=== PATIENT | male | born 1945 | race Caucasian/White ===

== ENCOUNTER 2018-03-23 11:47 | Inpatient (IN) ==
[2018-03-23 16:08] LABS: BASO# 0.04 X1000 (0.0-0.2); BASO% 0.5 % (0.0-0.8); EOS# 0.11 X1000 (0.0-0.7); EOS% 1.4 % (0.0-10.0); HEMATOCRIT 42.9 % (42.0-52.0); HEMOGLOBIN 14.2 g/dL (14.0-18.0); IMM GRAN# 0.02 X1000 (0.0-0.04); IMM GRAN% 0.3 % (0.0-0.5); LYMPH# 1.63 X1000 (1.2-3.4); LYMPH% 21.3 % (20.5-51.1); MCH 30.3 PG (27-31); MCHC 33.1 g/dL (33-37); MCV 91.5 FL (81-99); MONO# 0.81 X1000 (0.11-0.59); MONO% 10.6 % (1.7-9.3); MPV 11.6 FL (7.4-10.4); NEUT# 5.06 X1000 (1.4-6.5); NEUT% 65.9 % (42.2-75.2); PLT 215 X1000 (130-400); RBC 4.69 XMIL (4.7-6.1); RDW 12.4 % (11.5-14.5); WBC 7.67 X1000 (4.8-10.8)
--- NOTE | 2018-03-23 16:15 | Diag Imaging Result Doc PS360 ---
CHEST-PORTABLE - 03/23/2018 INDICATION: pre op COMPARISON: None FINDINGS: The lungs are normally expanded and clear. Heart size and mediastinal contours are normal. No pneumothorax or pleural effusion. IMPRESSION: Negative exam. Electronically signed by Jonah Salmeron 03/23/2018 4:13 PM
[2018-03-23 16:23] LABS: INR 0.93; PROTIME 13.2 Seconds (11.0-16.0)
[2018-03-23 16:44] LABS: ALB/GLOB RATIO 1.1; ALBUMIN 3.5 g/dL (3.5-5.0); CALCIUM 8.3 mg/dL (8.8-10.2); CREATININE 1.2 mg/dL (0.7-1.2); MAGNESIUM 2.1 mg/dL (1.5-2.7); POTASSIUM 3.7 mmol/L (3.5-5.1); TOTAL BILIRUBIN 0.37 mg/dL (0.20-1.00); TOTAL PROTEIN 6.8 g/dL (6.3-8.3)
[2018-03-23] MEDS: HUMULIN R SUBQ SCH ×2 (17:13→20:53)
[2018-03-23] MEDS: NS 1,000 ML IV SCH (17:43)
[2018-03-23 17:48] LABS: URINE SOURCE CLEAN CATCH
[2018-03-23] MEDS ORDERED: TYLENOL PO PRN (17:50)
[2018-03-23] MEDS ORDERED: NORCO-5 PO PRN (17:50)
[2018-03-23 18:01] LABS: BILIRUBIN URINE NEGATIVE (NEGATIVE); BLOOD URINE NEGATIVE (NEGATIVE); COLOR YELLOW; GLUCOSE URINE >1000 mg/dL (NEGATIVE); KETONE URINE NEGATIVE (NEGATIVE); LEUKOCYTES URINE NEGATIVE (NEGATIVE); NITRITE URINE NEGATIVE (NEGATIVE); PROTEIN URINE NEGATIVE (NEGATIVE); SP GRAVITY URINE 1.019; TURBIDITY URINE CLEAR (CLEAR); UROBILINOGEN URINE NORMAL (NORMAL)
[2018-03-23 18:03] LABS: UR EPITHELIAL CELLS <10 /HPF (<10); URINE BACTERIA NEGATIVE /HPF; URINE RBC <10 /HPF (<10); URINE WBC <10 /HPF (<10)
[2018-03-23] MEDS: ROCEPHIN 2 GM in NS 50 ML IV SCH (18:43)
[2018-03-23] MEDS: MAG-OX PO SCH (20:52)
[2018-03-23] MEDS: NEURONTIN PO SCH (20:52)
[2018-03-23] MEDS: FLOMAX PO SCH (20:53)
[2018-03-23] MEDS: REQUIP PO SCH (20:53)
[2018-03-23] MEDS: FLAGYL PO SCH (20:53)
[2018-03-23] MEDS ORDERED: LEVEMIR SUBQ SCH (21:00)
--- NOTE | 2018-03-23 23:48 | INFECTIOUS DISEASE CONSULT REP ---
DATE: 03/23/2018 CONCLUSION: The patient has osteomyelitis of the right foot. A culture taken from the foot grew Serratia marcescens and an anaerobic organism as well. RECOMMENDATIONS: I have started the patient on Rocephin and Flagyl. DISCUSSION: The patient for the past 4 months has had pain and some swelling and erythema of the right foot. The foot also started draining. He was seen by Dr. Mace who ordered a MRI of the right foot and he said it showed that the patient had osteomyelitis also. Dr. Mace obtained a culture from the patient's foot and it grew Serratia and an anaerobic organism. PAST MEDICAL HISTORY/REVIEW OF SYSTEMS: Eyes and ears: The patient has decreased hearing but his vision is okay. Neck: No stiffness. Respiratory: No cough or shortness of breath. Cardiac: No chest pains or palpitations. GI: The patient states intermittently he has constipation. He is not having vomiting. Genitourinary: No dysuria or flank pain. Bones, joints, muscles: See present illness. Endocrine: Patient is diabetic but he does not have thyroid disease. Neurologic: The patient is not having seizures. He has not had any motor function loss. PREVIOUS HOSPITALIZATIONS AND OPERATIONS: Patient said that he was admitted for having gallstones and he did not have his gallbladder taken out, but somehow the gallstones were removed. MEDICAL DISEASES: Positive for obesity, diabetes mellitus and neuropathy manifested by decreased sensation in his feet. INFECTIOUS DISEASE HISTORY: Negative for pneumonia and UTI. FAMILY HISTORY: Positive for diabetes mellitus, hypertension and cancer. [place]IAL HISTORY[place] He [place] a . He has cat as a pet. He does not smoke cigarettes, drink alcoholic beverages or abuse drugs. The patient is retired. ALLERGIES: His chart lists no known drug allergies. HOME MEDICATIONS: Include Trulicity, Nexium, Lasix, gabapentin, glyburide/metformin, Isordil, mononitrate, Pravachol, Requip, and Flomax. PHYSICAL EXAMINATION: There were no vital signs on the chart except for the patient's weight which was 245 pounds.General: This is an obese elderly male who is in no acute distress. Head/eyes/ears/nose/throat: He can hear my spoken words and see near objects. There is no drainage coming from the nose or ears. There was no white coating on his tongue. Neck: No stiffness. Lungs: Clear to auscultation. Cardiovascular: Regular heart rate. Abdomen: Soft and nontender. Extremities: The patient's right foot was erythematous and swollen and on the latter aspect there was purulent drainage. Neurologic: The patient is awake. He can move his extremities. There is no tremor. His sensation is intact to touch. The patient's memory regarding his medical history was intact. Integument: No rash noted. Thank you for the consult. cc: MD Amber Castellano MD
--- NOTE | 2018-03-24 00:10 | HISTORY AND PHYSICAL ---
PRIMARY CARE PROVIDER: Dr. Jamar Devi. The patient also sees Dr. Mace. CHIEF COMPLAINT: Right foot pain. HISTORY OF PRESENT ILLNESS: Mr. Carpenter is a 72-year-old male with a past medical history of uncontrolled diabetes mellitus, hypertension, sleep apnea and hyperlipidemia who presents as a direct admission from Dr. Mace's office today with concern for possible osteomyelitis of the right foot 5th digit. He has been experiencing redness and drainage from this foot since around December. This has progressively gotten worse and in clinic today Dr. Mace recommended for this patient to have surgery and requested for him to be admitted today. He denies any chest pain, shortness of breath, abdominal pain, nausea, vomiting, or diarrhea. He denies any fever. He does have significant pain and erythema to his right foot and unable to bear weight on this foot. He is a long-time diabetic. A1c is 11.0 and he states he has been on p.o. antibiotics for about the past month without significant improvement. He will be admitted for further evaluation and treatment and consultation per Dr. Mace and Infectious Disease Dr. Torres. PAST MEDICAL HISTORY: 1. Uncontrolled diabetes mellitus. 2. Hypertension. 3. Sleep apnea. 4. Hyperlipidemia. PAST SURGICAL HISTORY: No surgeries. SOCIAL HISTORY: The patient denies any tobacco, alcohol or illicit drug use. He lives alone. His is recently . He does have home health with [facility] and he is using a knee walker for mobility right now. REVIEW OF SYSTEMS: Fourteen point review of systems completely negative except for those mentioned in the HPI. His current symptoms include pain in the right foot. HOME MEDICATIONS: 1. Flomax 0.4 mg p.o. at bedtime. 2. Trulicity 0.75 mg subcu as directed. 3. Isosorbide mononitrate 30 mg p.o. daily. 4. Requip 0.5 mg p.o. at bedtime. 5. Pravastatin 40 mg p.o. daily. 6. Magnesium 250 mg p.o. at bedtime. 7. Insulin Tresiba 65 units subcu at bedtime. 8. Glyburide/metformin 1 each p.o. daily. 9. Gabapentin 300 mg p.o. b.i.d. 10. Lasix 20 mg p.o. daily. 11. Nexium 40 mg p.o. daily. ALLERGIES: No known drug allergies. PHYSICAL EXAMINATION: VITAL SIGNS: Not currently charted yet. GENERAL: This is a 72-year-old male. He is in no acute distress sitting in bed, answering questions appropriately. His son is at the bedside. NEURO: He is alert and oriented without focal deficits. Strength is equal bilaterally. He does have diminished sensation of bilateral lower extremities. HEENT: Head is atraumatic, normocephalic. Pupils are equal, round, reactive to light. Oral mucosa is moist. NECK: Trachea is midline. There is no JVD. CHEST: Lungs sounds are clear bilaterally. Respirations are unlabored. CARDIOVASCULAR: Rate and rhythm are regular. S1-S2 noted. ABDOMEN: Soft and nontender. Bowel sounds are positive. EXTREMITIES: There is erythema and yellowish drainage to the right foot around the left digit extending up the calf. He has 2+ pedal pulses bilaterally. LABS: WBC 7.6, hemoglobin 14.2, hematocrit 42.9, platelets 215,000. Sodium 135 , potassium 3.7, glucose 418. Hemoglobin A1c 11.0, BUN 27, creatinine 1.2, calcium 8.3, TSH 1.51. Liver enzymes normal. IMAGING: Chest x-ray, negative exam. ASSESSMENT AND PLAN: 1. Suspected osteomyelitis. Dr. Mace plans to do surgery tomorrow. We will keep NPO at midnight and hold anticoagulants until after surgery. We also consulted with Dr. Torres, infectious disease to assist in antibiotic guidance. We will also provide pain control and IV fluid hydration. 2. Hypertension. We will continue his home medications. 3. Uncontrolled diabetes mellitus. Will pattern blood glucose and sliding scale insulin. His A1c is 11.0. 4. Sleep apnea aware. 5. Hyperlipidemia. We will obtain lipid level and continue home medications. 6. Deep venous thrombosis prophylaxis. We will hold for now until after surgery. 7. Gastrointestinal prophylaxis Protonix. Dictated by RAMON Garcia for Amber Kendrick MD cc: KADI Yi
--- NOTE | 2018-03-24 02:16 | CONSULTATION ---
DATE OF CONSULTATION: 03/23/2018 HISTORY OF PRESENT ILLNESS: He is a patient that has been familiar to me for quite some time. He was seen in my office this morning for a wound that has been open and been infected that we have been treating as an outpatient, it had been holding its own for a while and then it started to look like he may be having some underlying osteomyelitis so we ordered an MRI at [facility], and was suspicious for osteomyelitis. I saw him last Monday, the plan was to get him to Dr. Torres as an outpatient and get an ID consult when the culture was final, and possibly treat this as an outpatient, but when he came in my office on Monday the foot was a lot more red and swollen than it had been, and the decision was made to put him in-house and do a debridement, open the foot up and debride the infected tissue, and he is amenable to that. PHYSICAL EXAMINATION: He has 2 wounds, 1 on the plantar aspect of the 5th metatarsal head and 1 on the dorsal aspect of the 5th metatarsal with surrounding redness, and swelling, pain and some purulent discharge. He had a culture that was taken outpatient that grew an anaerobe, so we are going to add oral Flagyl. ASSESSMENT AND PLAN: Diabetic foot infection with drainage and possible probable underlying osteomyelitis. The plan is to take him to the operating room tomorrow and debride all the infected and nonviable tissue and bone. He understands that this may be up to and including an amputation of part of his 5th ray and losing the 5th toe and he is fine with that. So we will take him to the operating room tomorrow morning and do the procedure and follow him until discharge. We may need a secondary operation to close the wound depending on how everything goes tomorrow. cc: KADI Yi MD
[2018-03-24] MEDS: FLAGYL PO SCH ×4 (03:31→21:04)
[2018-03-24] MEDS ORDERED: INSULIN PEN NEEDLES ONE (05:45)
[2018-03-24] MEDS: PRILOSEC PO SCH (06:02)
[2018-03-24] MEDS: HUMULIN R SUBQ SCH ×4 (06:02→21:05)
[2018-03-24] MEDS: NS 1,000 ML IV SCH ×2 (06:03→21:05)
[2018-03-24] MEDS ORDERED: NEXIUM PO SCH (07:00)
[2018-03-24 07:11] LABS: BASO# 0.04 X1000 (0.0-0.2); BASO% 0.5 % (0.0-0.8); EOS# 0.16 X1000 (0.0-0.7); HEMATOCRIT 45.7 % (42.0-52.0); IMM GRAN# 0.02 X1000 (0.0-0.04); IMM GRAN% 0.2 % (0.0-0.5); LYMPH# 1.84 X1000 (1.2-3.4); LYMPH% 22.5 % (20.5-51.1); MCH 30.2 PG (27-31); MCHC 32.8 g/dL (33-37); MONO# 0.75 X1000 (0.11-0.59); MONO% 9.2 % (1.7-9.3); MPV 11.7 FL (7.4-10.4); NEUT# 5.38 X1000 (1.4-6.5); NEUT% 65.6 % (42.2-75.2); PLT 233 X1000 (130-400); RBC 4.97 XMIL (4.7-6.1); RDW 12.6 % (11.5-14.5); WBC 8.19 X1000 (4.8-10.8)
[2018-03-24 07:38] LABS: AGAP 15; BUN 25 mg/dL (8-22); CALCIUM 8.9 mg/dL (8.8-10.2); CHLORIDE 99 mmol/L (98-107); CHOLESTEROL 151 mg/dL (0-200); COSMO 292; CREATININE 1.1 mg/dL (0.7-1.2); ESTIMATED GFR > 60; GLUCOSE 278 mg/dL (70-104); HDL 47 mg/dL (35-55); LDL 81 mg/dL; POTASSIUM 4.1 mmol/L (3.5-5.1); SODIUM 139 mmol/L (136-145); TCO2 25 mmol/L (25-35); TRIGLYCERIDES 115 mg/dL (39-160); VLDL 23 mg/dL
[2018-03-24] MEDS ORDERED: DIPRIVAN 1% ONE (08:43)
[2018-03-24] MEDS ORDERED: QUELICIN (DOSE) ONE (08:45)
[2018-03-24] MEDS ORDERED: XYLOCAINE-MPF 2% ONE (08:45)
[2018-03-24] MEDS ORDERED: NEOSPORIN G.U. IRRIGANT ONE ×2 (10:44→10:56)
[2018-03-24] MEDS ORDERED: FENTANYL ONE (11:02)
[2018-03-24] MEDS ORDERED: ZOFRAN ONE (11:02)
[2018-03-24] MEDS: NORCO-10 PO PRN ×2 (12:24→16:47)
[2018-03-24] MEDS: LASIX PO SCH (12:24)
[2018-03-24] MEDS: NEURONTIN PO SCH ×2 (12:24→21:04)
[2018-03-24] MEDS: LEVEMIR SUBQ SCH ×2 (12:25→21:05)
--- NOTE | 2018-03-24 13:26 | PROGRESS NOTE ---
DATE: 03/24/2018 SUBJECTIVE: The patient is resting comfortably. He is scheduled to have surgery on his foot today. OBJECTIVE: Vital Signs: Temperature 98.6 degrees, blood pressure 125/68, heart rate 75, respirations 18, O2 saturation 96% on room air. General: This is a morbidly obese elderly male lying in bed in no acute distress. Heart: S1, S2 normal. Regular rate and rhythm. Lungs: Equal air entry bilaterally. No crackles, no rales. Abdomen: Positive bowel sounds. Soft, nontender, nondistended. Extremities: The foot is wrapped in a clean dry dressing. LABS: Sodium 139, potassium 4.1, chloride 99, CO2 25, BUN 25, creatinine 1.1, glucose 278. ASSESSMENT AND PLAN: 1. Right foot osteomyelitis. The patient is going to undergo debridement today. Will continue with antibiotic therapy as directed by Dr. Torres. 2. Uncontrolled insulin-dependent diabetes mellitus. Will adjust the patient's long-acting insulin. Continue with sliding scale insulin. 3. Gastroesophageal reflux disease. Continue on Protonix. 4. Benign prostatic hypertrophy. Continue on Flomax. 5. Hypertension controlled. 6. Deep vein thrombosis prophylaxis. Will start the patient on Lovenox. cc: Amber Kendrick MD MTDD
--- NOTE | 2018-03-24 15:48 | OPERATIVE NOTE ---
PROCEDURE DATE: PREOP DIAGNOSIS: Nonhealing diabetic foot ulcer with underlying osteomyelitis 5th metatarsal head right foot. POSTOP DIAGNOSIS: Nonhealing diabetic foot ulcer with underlying osteomyelitis 5th metatarsal head right foot. PROCEDURE: Is incision and drainage of right foot with removal of infected tissue and bone 5th metatarsal right foot. SURGEON: Dr. Mace. ANESTHESIA: Was general. HEMOSTASIS: Was thigh tourniquet 350 mmHg. DESCRIPTION OF PROCEDURE: Patient brought to operating room placed on supine position. General anesthesia was then induced. Patient was then prepped and draped in usual aseptic manner. Procedure was begun by examining the right foot with elevation and inflating the tourniquet to 350 mmHg. An incision was made near the dorsal lateral aspect of the 5th metatarsal longitudinally. This was deepened down to the deep layers and we encountered some purulent drainage which was cultured deep cultures in the foot. We then identified where the infection was coming from from the bone in the 5th metatarsal head. There was obviously osteomyelitic bone which was confirmed with MRI. This bone was resected with a sagittal saw and sent as a specimen. We then took another little sliver proximally of what appeared to be normal bone and sent that as separate specimen with the expectation that will show no infection. The remainder of the procedure involved removing any nonviable tissue. There was very little that, most of the tissue looked good once we got the infected bone out of there. Soft tissue was debrided with scissors and a pickup until good healthy tissue was noted everywhere. The tourniquet was released. Wound was irrigated 3 L normal saline with solution. The wound was then packed with iodoform gauze and closed with 2-0 nylon partially. He left the operating room vital signs stable, CFT intact and will be followed [*] cc: Nolan Mace DPM
[2018-03-24] MEDS: ROCEPHIN 2 GM in NS 50 ML IV SCH (18:16)
[2018-03-24] MEDS: DILAUDID IV PRN (18:28)
[2018-03-24] MEDS: MAG-OX PO SCH (21:04)
[2018-03-24] MEDS: REQUIP PO SCH (21:04)
[2018-03-24] MEDS: FLOMAX PO SCH (21:04)
[2018-03-25] MEDS: DILAUDID IV PRN (02:44)
[2018-03-25] MEDS: PRILOSEC PO SCH (06:00)
[2018-03-25] MEDS: FLAGYL PO SCH ×3 (06:01→20:09)
[2018-03-25] MEDS: HUMULIN R SUBQ SCH ×4 (06:01→20:10)
[2018-03-25 07:19] LABS: BASO# 0.02 X1000 (0.0-0.2); BASO% 0.3 % (0.0-0.8); EOS# 0.16 X1000 (0.0-0.7); EOS% 2.1 % (0.0-10.0); HEMATOCRIT 43.6 % (42.0-52.0); HEMOGLOBIN 14.1 g/dL (14.0-18.0); LYMPH# 1.69 X1000 (1.2-3.4); LYMPH% 21.7 % (20.5-51.1); MCH 30.2 PG (27-31); MCHC 32.3 g/dL (33-37); MCV 93.4 FL (81-99); MONO# 0.81 X1000 (0.11-0.59); MONO% 10.4 % (1.7-9.3); MPV 11.4 FL (7.4-10.4); NEUT% 65.5 % (42.2-75.2); PLT 210 X1000 (130-400); RBC 4.67 XMIL (4.7-6.1); RDW 12.6 % (11.5-14.5); WBC 7.78 X1000 (4.8-10.8)
[2018-03-25 07:40] LABS: MAGNESIUM 2.1 mg/dL (1.5-2.7); PHOSPHORUS 2.9 mg/dL (2.7-4.5)
[2018-03-25 08:01] LABS: AGAP 12; BUN 19 mg/dL (8-22); CALCIUM 8.6 mg/dL (8.8-10.2); CHLORIDE 103 mmol/L (98-107); COSMO 286; ESTIMATED GFR > 60; GLUCOSE 140 mg/dL (70-104); POTASSIUM 4.5 mmol/L (3.5-5.1); SODIUM 141 mmol/L (136-145); TCO2 26 mmol/L (25-35)
[2018-03-25] MEDS: LOVENOX SUBQ SCH (09:28)
[2018-03-25] MEDS: NEURONTIN PO SCH ×2 (09:28→20:09)
[2018-03-25] MEDS: LASIX PO SCH (09:28)
[2018-03-25] MEDS: LEVEMIR SUBQ SCH ×2 (09:29→20:09)
--- NOTE | 2018-03-25 13:15 | PROGRESS NOTE ---
DATE: 03/25/2018 SUBJECTIVE: He states he is feeling much better. He had a decent amount of pain last night, but that has since resolved and it is less painful now than it was before the surgery. OBJECTIVE: He is lying in bed. He is in no distress. The swelling that was noted in his leg preoperatively is gone. Dressing is dry and intact. Upon removal the drain is in place. Sutures are in place. The wounds are healing well. The packing was removed and the interior of the wound looks very good. There is no pus. No odor. No devitalized tissue. No infected or nonviable tissue noted at all. The swelling and the redness in the foot is remarkably better than it was preoperatively, so everything looks quite a bit better than it did before the surgery. We are awaiting the final culture results and histopathological results from the surgery. ASSESSMENT AND PLAN: Open wound with underlying osteomyelitis that was debrided yesterday. The infected tissue was removed which included the end of the 5th metatarsal and today everything looks much, much better. The wound was lightly repacked with Betadine gauze and a sterile dressing. He is going to continue nonweightbearing and continue the IV antibiotics. If everything looks this good tomorrow, we should be able to let him go home tomorrow and the Infectious Disease, Dr. Torres, will determine the proper antibiotics for him based on the intraoperative cultures, which are still pending. cc: Nolan Mace DPM
[2018-03-25] MEDS: ROCEPHIN 2 GM in NS 50 ML IV SCH (16:59)
[2018-03-25] MEDS: ZYVOX PO SCH (17:06)
--- NOTE | 2018-03-25 18:48 | PROGRESS NOTE ---
DATE: 03/25/2018 SUBJECTIVE: The patient is resting comfortably in bed. He has no complaints at this time. OBJECTIVE: Vital Signs: Temperature 98.5 degrees, blood pressure 132/76, heart rate 81, respirations 18, O2 saturation 95% on room air. General: This is a chronically ill-appearing elderly male lying in bed in no acute distress. Heart: S1, S2 normal. Regular rate and rhythm. Lungs: Clear to auscultation bilaterally. Abdomen: Positive bowel sounds, soft, obese. Extremities: The right foot is wrapped in a clean dry dressing. Neuro: The patient is alert and oriented x3. LABS: White blood cell count 7.7, hemoglobin 14, hematocrit 43, platelets 210, 000, sodium 141, potassium 4.5, chloride 103, CO2 26, BUN 19, creatinine 1, glucose 140, calcium 8.6. ASSESSMENT AND PLAN: 1. Right foot osteomyelitis status post debridement. The cultures are growing gram-positive cocci. Continue with antibiotic therapy as directed by Dr. Torres. 2. Insulin-dependent diabetes mellitus type 2. Improved, continue on the current insulin regimen. 3. Benign prostatic hypertrophy. Continue on Flomax. 4. Hypertension. Controlled. 5. Gastroesophageal reflux disease. Continue on Protonix. 6. Deep vein thrombosis prophylaxis. The patient is on Lovenox. cc: Amber Kendrick MD MTDMellisa
--- NOTE | 2018-03-25 19:53 | INFECTIOUS DISEASE PROGRESS NO ---
DATE: 03/25/2018 SUBJECTIVE: The patient is growing gram-positive cocci from his foot. I have added Zyvox pending the identification and susceptibility testing of the gram-positive cocci. The patient is on Rocephin because the patient had Serratia isolated from his foot and the patient is on metronidazole because Dr. Mace said an anaerobic organism was isolated from the patient's foot also. cc: Peter Torres MD
[2018-03-25] MEDS: MAG-OX PO SCH (20:09)
[2018-03-25] MEDS: REQUIP PO SCH (20:09)
[2018-03-25] MEDS: COLACE PO SCH (20:09)
[2018-03-25] MEDS: FLOMAX PO SCH (20:10)
[2018-03-26] MEDS: FLAGYL PO SCH ×3 (04:01→14:28)
[2018-03-26] MEDS: ZYVOX PO SCH (06:14)
[2018-03-26] MEDS: PRILOSEC PO SCH (06:15)
[2018-03-26] MEDS: HUMULIN R SUBQ SCH ×3 (06:15→16:59)
[2018-03-26 07:15] LABS: BASO# 0.02 X1000 (0.0-0.2); BASO% 0.3 % (0.0-0.8); EOS# 0.22 X1000 (0.0-0.7); EOS% 3.2 % (0.0-10.0); HEMATOCRIT 43.9 % (42.0-52.0); HEMOGLOBIN 14.5 g/dL (14.0-18.0); LYMPH# 1.34 X1000 (1.2-3.4); LYMPH% 19.4 % (20.5-51.1); MCH 30.2 PG (27-31); MCV 91.5 FL (81-99); MONO# 0.69 X1000 (0.11-0.59); MPV 11.5 FL (7.4-10.4); NEUT# 4.65 X1000 (1.4-6.5); NEUT% 67.1 % (42.2-75.2); PLT 220 X1000 (130-400); RDW 12.4 % (11.5-14.5); WBC 6.92 X1000 (4.8-10.8)
--- NOTE | 2018-03-26 07:16 | EKG Report ---
Test Performed on : 03/24/2018 08:47:14 AM Test Reason : surgicial procd Blood Pressure : / mmHG Vent. Rate : 079 BPM Atrial Rate : 078 BPM P-R Int : 000 ms QRS Dur : 086 ms QT Int : 392 ms P-R-T Axes : 000 -45 015 degrees QTc Int : 449 ms Accelerated Junctional rhythm. vs. sinus rhythm Left anterior fascicular block Abnormal ECG When compared with ECG of 13-FEB-2014 12:19, Junctional rhythm. has replaced Sinus rhythm. Lots of baseline artifact, I suspect there are P waves hidden in the artifact. (V3) Confirmed by Paulina NEUMANN, Eduardo Kamara ([id number]) on 03/26/2018 8:43:13 AM
[2018-03-26 07:28] LABS: AGAP 14; BUN 15 mg/dL (8-22); CALCIUM 8.8 mg/dL (8.8-10.2); CHLORIDE 101 mmol/L (98-107); COSMO 277; CREATININE 0.9 mg/dL (0.7-1.2); ESTIMATED GFR > 60; GLUCOSE 99 mg/dL (70-104); POTASSIUM 3.9 mmol/L (3.5-5.1); SODIUM 138 mmol/L (136-145); TCO2 23 mmol/L (25-35)
[2018-03-26] MEDS: COLACE PO SCH (08:26)
[2018-03-26] MEDS: NEURONTIN PO SCH (08:26)
[2018-03-26] MEDS: LASIX PO SCH (08:26)
[2018-03-26] MEDS: LOVENOX SUBQ SCH (08:26)
[2018-03-26] MEDS: LEVEMIR SUBQ SCH (08:26)
[2018-03-26] MEDS ORDERED: INSULIN PEN NEEDLES ONE (08:36)
--- NOTE | 2018-03-26 12:08 | PROGRESS NOTE ---
DATE: 03/26/2018 SUBJECTIVE: The patient is resting comfortably in bed. He has no complaints. He states that his pain is under control. OBJECTIVE: Vital Signs: Temperature 97 degrees, blood pressure 132/79, heart rate 78, respirations 19, O2 saturation is 100% on room air. General: This is an elderly male lying in bed in no acute distress. Heart: S1, S2 normal. Regular rate and rhythm. Lungs: Clear to auscultation bilaterally. No wheezing. No rales. No rhonchi. Abdomen: Positive bowel sounds, soft, nontender, nondistended. Extremities: The right foot is wrapped in a clean, dry dressing. LABS: White blood cell count 6.9, hemoglobin 14, hematocrit 43, platelets 220,000. Sodium 138, potassium 3.9, chloride 101, CO2 23, BUN 15, creatinine 0.9, glucose 99. ASSESSMENT AND PLAN: 1. Right foot osteomyelitis status post debridement secondary to Streptococcus agalactiae. Continue with antibiotic therapy as directed by Dr. Torres. 2. Insulin-dependent diabetes mellitus. Continue on the current insulin regimen. 3. Benign prostatic hypertrophy. Continue on Flomax. 4. Hypertension. Controlled. 5. Gastroesophageal reflux disease. Continue on Protonix. 6. Deep vein thrombosis prophylaxis. Continue on Lovenox. cc: Amber Kendrick MD
[2018-03-26 13:55] LABS: INR 0.92; PROTIME 13.1 Seconds (11.0-16.0)
--- NOTE | 2018-03-26 13:58 | INFECTIOUS DISEASE PROGRESS NO ---
DATE: 03/26/2018 PRESENT ILLNESS: The patient has a right foot osteomyelitis. Cultures from the patient's foot grew group B strep, which is Strep agalactiae, here in the hospital. Prior to the hospitalization, Dr. Mace cultured a serratia and an anaerobic organism from the patient's foot. MEDICATIONS: Currently, the patient is receiving a combination of Rocephin and Flagyl. PHYSICAL EXAMINATION: Vital Signs: Temperature 97.9 degrees, pulse 76, respirations 19, blood pressure 137/80. General: This is an obese, elderly male. He is in no acute distress. Head, eyes, ears, nose, and throat: He can hear my spoken words and see near objects. There is no drainage from his nose or ears. There was no white coating to his tongue. Neck: No stiffness. Lungs: Clear to auscultation. Cardiovascular: Regular heart rate. Abdomen: Soft and nontender. Extremities: The patient has a dressing on the foot, put on there by Dr. Mace who wrote the dressing should not be removed. Neurologic: The patient is alert. He can move his extremities. There is no tremor. LAB AND X-RAY: CBC today shows a white count of 6920, hemoglobin 14.5, platelet count 220,000. Creatinine 0.9, GFR greater than 60. As mentioned above, cultures from the patient's right foot grew Strep agalactiae, which is group B strep, here at [facility], and as an outpatient, the patient grew serratia and an anaerobic organism from the right foot. ASSESSMENT AND PLAN: The patient has right foot osteomyelitis with group B streptococcus, serratia, and an anaerobic organism causing the infection. The plan is to have a peripherally inserted central catheter placed and then the patient will receive Rocephin 2 g intravenously daily and Flagyl 500 mg orally every 8 hours for a total of 6 weeks. I am writing the patient for a followup in my office at 3 weeks and then again at 6 weeks, at which time we will stop the intravenous and oral antibiotics. I told the patient that if he does not have coverage to receive the Rocephin at home, that he will come to the outpatient clinic for daily infusions of Rocephin. COMORBIDITIES: He is obese and he has diabetes mellitus and a neuropathy manifested by decreased sensation in his foot. cc: Peter Torres MD
[2018-03-26] MEDS ORDERED: NS 250 ML ONE (14:59)
--- NOTE | 2018-03-26 16:56 | PROGRESS NOTE ---
DATE: 03/26/2018 SUBJECTIVE: He states he feels great. No problems. OBJECTIVE: The dressing is dry and intact. The wound looks excellent. There was no pus, odor or drainage at all. The redness is basically gone from the toe and the distal foot. However, there is a little bit of redness on the proximal portion of the incision area, but it is mild. The incisions are healing well. ASSESSMENT AND PLAN: Status post incision and drainage with removal of infected tissue and bone. He is doing very well. We are still awaiting the final culture results, but Dr. Torres has him on oral Flagyl for the anaerobe and Rocephin to cover everything else. He is to remain nonweightbearing as best he can with a roll about. We put a new sterile dressing on there, packed it lightly with Betadine and we will let this wound heal secondarily as an outpatient. He is free to be discharged, at this point, as long as it is okay with Dr. Torres and the hospitalist. cc: Nolan Mace DPM
[2018-03-26] MEDS: ROCEPHIN 2 GM in NS 50 ML IV SCH (16:59)
[2018-03-26 17:02] VITALS: BP 155/90
--- NOTE | 2018-04-01 05:29 | DISCHARGE SUMMARY ---
ADMISSION DATE: 03/23/2018 DISCHARGE DATE: 03/27/2018 FINAL DISCHARGE DIAGNOSES: 1. Right foot osteomyelitis secondary to group B streptococcus. 2. Uncontrolled insulin-dependent diabetes mellitus type 2. 3. Morbid obesity. 4. Hypertension. 5. Benign prostatic hypertrophy. CONSULTATIONS: 1. ID consultation with Dr. Torres. 2. Podiatry consultation with Dr. Mace. PROCEDURES: Incision and drainage of right foot with removal of infected tissue and bone from the fifth metatarsal, right foot. HOSPITAL COURSE: Mr. Carpenter is a 72-year-old male with a history of poorly controlled insulin- dependent diabetes mellitus and a nonhealing diabetic foot ulcer with underlying osteomyelitis involving the right foot. The patient was sent as a direct admission by Dr. Mace for inpatient management of the patient's osteomyelitis as well as debridement. On admission, the patient was noted to have a blood sugar of 418. His hemoglobin A1c was also markedly elevated at 11. ID and podiatry were consulted, and the patient was started on broad-spectrum antibiotics. The patient was taken for debridement on 03/24/2018. Cultures were obtained during this procedure. While hospitalized, the patient was started on Levemir 30 units subcutaneous twice a day. With the initiation of this dosage, the patient's blood sugars improved and ranged anywhere from 138 to about 166. Ultimately, the wound cultures grew out group B Streptococcus agalactiae. It was recommended by Dr. Torres that the patient be sent home with Rocephin 2 g IV daily and Flagyl 500 mg oral every 8 hours for a total of 6 weeks. A PICC line was placed and [facility] was consulted to arrange for the home antibiotics. The patient improved clinically and was cleared for discharge home on 03/26/2018. DISCHARGE MEDICATIONS: 1. Flagyl 500 mg p.o. every 8 hours. 2. Levemir 30 units subcutaneous twice a day. 3. Ceftriaxone 2 g IV daily x6 weeks. 4. Pravastatin 40 mg p.o. daily. 5. Lasix 20 mg p.o. daily. 6. Nexium 40 mg p.o. daily. 7. Gabapentin 300 mg p.o. twice a day. 8. Isosorbide mononitrate 30 mg p.o. daily. 9. Requip 0.5 mg p.o. at bedtime. 10. Flomax 0.4 mg p.o. at bedtime. DISCHARGE DIET: Low-sodium diet, 1800, ADA diet. ACTIVITY: As tolerated. FOLLOWUP INSTRUCTIONS: The patient will need to follow up with Dr. Mace as scheduled by his clinic. The patient will also follow up with Dr. Peter Torres in 3 weeks. cc: MD Amber Bruner MD
== END 2018-03-26 18:02 | disposition home health service (06) | DRG 629 ==
LOC: DIRADM 11:47 → SUATTDRO 11:47 → 3N 15:01
PROVIDERS: ATTEND Internal Medicine
CPT/HCPCS: 36569; 71010; 71045; 80048; 80053; 80061; 81001; 82550; 82948; 83036; 83605; 83735; 84100; 84443; 85025; 85610; 87040; 87070; 87075; 87077; 87186; 87205; 88305; 88311; 93005; 93010; A9270; J0330; J0696; J1170; J1650; J2405; J3010; J7030; J7050; XXXXX